=== PATIENT | female | born 1975 | race Caucasian/White ===

== ENCOUNTER 2019-01-28 22:28 | Emergency (ER) | payer OTHER ==
[2019-01-28 22:58] VITALS: TEMP 97.6; BMI 23.3
[2019-01-28] MEDS ORDERED: ACETAMINOPHEN 500 MG TABLET (FP) PO ONE (23:19)
[2019-01-28] MEDS ORDERED: FAMOTIDINE 10 MG TABLET PO ONE (23:19)
[2019-01-28] MEDS ORDERED: MAG HYDROX/AL HYDROX/SIMETH 30 ML UNIT-DOSE CUP PO ONE (23:25)
--- NOTE | 2019-01-28 23:25 | PDOC ---
History of Present Illness - General Chief Complaint: Pain, Acute Stated Complaint: ABDOMINAL PAIN Time Seen by Provider: 01/28/19 22:53 History Source: Patient Exam Limitations: No Limitations - History of Present Illness Initial Comments: 01/29/19 06:13 HPI: 43F no PMH c/o on/off epigastric pain radiating around to the back since 8pm today w/o N/V/PO intolerance. Sx lasted about 1 hour. Denies f/c, cp/sob. Passed flatus today. No sick contacts, no recent abx. 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 Currently asymptomatic. Denies etoh, smoking, drugs. Past History - Past Medical History Allergies/Adverse Reactions: Allergies Allergy/AdvReac Type Severity Reaction Status Date / Time No Known Allergies Allergy Verified 01/28/19 22:47 Home Medications: Ambulatory Orders NK [No Known Home Medication] 01/28/19 - Psycho Social/Smoking Cessation Hx Smoking History: Never smoked Have you smoked in the past 12 months: No Information on smoking cessation initiated: No Hx Alcohol Use: No Drug/Substance Use Hx: No Review of Systems - Review of Systems Able to Perform ROS?: Yes Comments:: 01/29/19 06:13 ROS: CONSTITUTIONAL: Denies F / C HEENT: Denies sore throat, rhinorrhea. RESP: Denies SOB, cough CARD: Denies chest pain GI: Endorses epigastric pain. Denies N / V / D, inability to tolerate PO : Denies dysuria, frequency SKIN: Denies rashes, edema NEURO: Denies numbness, tingling Is the patient limited Yemeni proficient: No *Physical Exam - Vital Signs Last Vital Signs Temp Pulse Resp BP Pulse Ox 97.6 F 80 20 134/81 100 01/28/19 22:48 01/28/19 22:48 01/28/19 22:48 01/28/19 22:48 01/28/19 22:48 - Physical Exam Comments: 01/29/19 06:13 PE: GEN: Well appearing, NAD, comfortable. AAOx3 HEENT: NC/AT. No facial asymmetry. Normal voice. Supple neck w/ FROM. CV: S1/S2, RRR, no m/r/g LUNG: CTAB, no wheezes, crackles, rales, rhonchi. GI: +MILD TTP midepigastrium otherwise soft, ndnt, +BS, no guarding, no rebound. No masses. EXTREMITIES: No obvious deformities of all extremities. SKIN: warm, dry, normal turgor PSYCH: normal mood and affect NEURO: Moving all extremities well, ambulates w/ normal gait ED Treatment Course - LABORATORY CBC & Chemistry Diagram: 01/29/19 03:36 01/29/19 03:36 Medical Decision Making - Medical Decision Making 01/28/19 23:22 MDM: 43F c/o on/off epigastric pain radiating around to the back w/o N/V/D; lasted about 1 hour. H/o gastric sleeve in 2018 w/o complication. Currently asymptomatic. DDx - PUD, pancreatitis, biliary/gallbladder pathology. Unlikely ACS or leak of sleeve. - CBC, CMP, Lipase - UA - EKG - Maloox - Reassess 01/29/19 00:18 labs reviewed, leukocytosis CT a/p 01/29/19 01:17 elevated LFTs denies heavy etoh, states she drinks socially every once and awhile Bedside RUQ US showing mobile gallstones - obtain RUQ US in addition to CT A/P Pt feeling better 01/29/19 02:59 US IMPRESSION: 1. Possible hepatic steatosis. 2. Cholelithiasis. 3. Medical renal disease suggested in the right kidney. f/u CT read rpt labs 01/29/19 03:31 CT A/P IMPRESSION: 1. Possible constipation. 2. Involuting cyst in the right ovary with small amount of free fluid in the right adnexa and rightward cul-de-sac. 3. Gallstones. asymptomatic rpt labs 01/29/19 03:59 WBC down DC home w/ bariatric and pcp f/u Discharge - Discharge Information Problems reviewed: Yes Clinical Impression/Diagnosis: Biliary colic Condition: Stable Disposition: HOME - Admission No - Follow up/Referral Referrals: Humberto Young MD [Staff Physician] - - Patient Discharge Instructions Patient Printed Discharge Instructions: DI for Biliary Colic Additional Instructions: You were provided a copy of your Ultrasound and CT scan results. They were reviewed with you at bedside and the elevated liver enzymes were recorded on the results provided. Follow up with your primary care doctor in the next 5-7 days regarding your elevated liver enzymes and the imaging findings. Follow up with a bariatric surgeon in the next 3-5 days regarding your symptoms. We have referred you to Dr. Humberto Young. You may schedule an appointment with him at the provided phone number. You may take maalox or pepcid as directed on the label for your symptoms. These can be bought over the counter. IMMEDIATELY return to the nearest Emergency Department if you experience any of the following: - worsening symptoms - inability to eat or drink - severe vomiting - High fever, jaundice, or change in mentation / behavior / personality - ANYTHING THAT CONCERNS YOU - Post Discharge Activity Work/Back to School Note: Back to Work
[2019-01-28] MEDS ORDERED: MAG HYDROX/AL HYDROX/SIMETH 30 ML UNIT-DOSE CUP ONE (23:42)
[2019-01-28] MEDS ORDERED: ACETAMINOPHEN 325 MG TABLET (FP) ONE (23:42)
[2019-01-28 23:44] LABS: EPI CELLS 11.2 /HPF (0-5/HPF); HYALINE CASTS 3 /lpf (0-8); PH,URINE 6.5 (5.0-8.0); URINE APPEARANCE CLEAR; URINE BILIRUBIN NEGATIVE (NEGATIVE); URINE COLOR YELLOW; URINE GLUCOSE (UA) NEGATIVE (NEGATIVE); URINE KETONE 1+ (NEGATIVE); URINE LEUK ESTERASE TRACE (NEGATIVE); URINE NITRITE NEGATIVE (NEGATIVE); URINE PROTEIN NEGATIVE (NEGATIVE); URINE RBC 2 /hpf (0-4); URINE WBC 9 /hpf (0-5)
[2019-01-29 00:04] LABS: BASO % 0.1 % (0-2.0); EOS % 0.1 % (0-4.5); HEMATOCRIT 38.3 % (32.4-45.2); HEMOGLOBIN 12.3 GM/dL (10.7-15.3); LYMPH % 5.6 % (8-40); MCH 26.4 pg (25.7-33.7); MCHC 32.1 g/dl (32.0-36.0); MEAN CELL VOLUME 82.3 fl (80-96); MEAN PLT VOLUME 9.9 fl (7.5-11.1); MONO % 6.7 % (3.8-10.2); NEUT % 87.5 % (42.8-82.8); PLATELET COUNT 301 K/MM3 (134-434); RBC 4.65 M/mm3 (3.60-5.2); RDW 14.2 % (11.6-15.6); WHITE BLOOD COUNT 17.7 K/mm3 (4.0-10.0)
--- NOTE | 2019-01-29 00:06 | PDOC ---
Documentation entered by Danay Atkins SCRIBE, acting as scribe for Devorah Melchor DO. Devorah Melchor DO: This documentation has been prepared by the Milly amador Adrianna, SCRIBE, under my direction and personally reviewed by me in its entirety. I confirm that the documentation accurately reflects all work, treatment, procedures, and medical decision making performed by me. Attending Attestation - Resident Resident Name: Lacho Carpio - ED Attending Attestation I have performed the following: I have examined & evaluated the patient, The case was reviewed & discussed with the resident, I agree w/resident's findings & plan, Exceptions are as noted - HPI HPI: The patient is a 43 year old female, with a significant PMH pf gastric sleeve, who presents to the ED for evaluation of epigastric pain for a few hours. Patient developed sudden onset epigastric pain that is intermittent and radiates to the back. Patient was supposed to be eating small meals since her gastric sleeve, and missed her meals so she was eating small snacks when her pain began. Denies any nausea or vomit, has been able to tolerate PO, and LBM was yesterday and normal. Allergies: NKA, NKDA Surgical History: Gastric sleeve Social History: Denies EtOH, tobacco, or illicit drug use - Physicial Exam PE: Constitutional: Awake, alert, oriented. No acute distress. Head: Normocephalic. Atraumatic Eyes: PERRL. EOMI. Conjunctivae are not pale. ENT: Mucous membranes are moist and intact. Posterior pharynx without exudates or erythema. Uvula midline. Neck: Supple. Full ROM. No lymphadenopathy. Cardiovascular: Regular rate. Regular rhythm. S1, S2 regular. Distal pulses are 2+ and symmetric. Pulmonary/Chest: No evidence of respiratory distress. Clear to auscultation bilaterally No wheezing, rales or rhonchi. Abdominal: +Mild epigastric tenderness to deep palpation of the epigastric area. Soft and nondistended. No rebound, guarding or rigidity. No organomegaly. No palpable masses. Good bowel sounds. Back: No CVA tenderness. Musculoskeletal: No edema. No cyanosis. No clubbing. Full range of motion in all extremities. Nocalf tenderness. Radial/pedal pulses are intact and 2+ bilaterally Skin: Skin is warm and dry. No petechiae. No purpura. Neurological: Alert and oriented to person, place, and time. Cranial nerves II -XII are grossly intact. Normal speech. Strength is grossly symmetric. No sensory deficits. Psychiatric: Good eye contact. Normal interaction, affect and behavior. - Medical Decision Making 01/29/19 00:02 I, Dr. Devorah Melchor, DO, attest that this document has been prepared under my direction and personally reviewed by me in its entirety. I further attest, that it accurately reflects all work, treatment, procedures and medical decision -making performed by me. 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 -states eating snacks tonight when the pain started - no radiation -no assoc n/v/d -last bm was yesterday and normal -pt states pain has since resolved -very mild ttp in epigastric region -pt in nad -will send labs and give maalox - does feel burning in abd and sour taste in mouth -will monitor and reassess 01/29/19 00:18 pt with wbc 17 - with a shift will obtain ct abd/pelvis 01/29/19 00:[address] pending 01/29/19 01:17 bedside ultrasound - gallstones that are mobile - no pericholecystic fluid, neg murphys, no gb wall thickening, no cbd dilatation 01/29/19 01:57 pt with elevated lft and wbc stones on ultrasound bedside pending ct and ultrasound reads and imaging pt signed out to the night team pending imaging and re-eval will repeat cbc Heart Score/ECG Review - ECG Intrepretation Comment:: 01/29/19 00:04 sinus at 74, nl axis, nl interval, no acute st/t wave findings
[2019-01-29 00:28] LABS: ALBUMIN 3.9 g/dl (3.4-5.0); BILIRUBIN,TOTAL 0.8 mg/dL (0.2-1); BLOOD UREA NITROGEN 10.8 mg/dL (7-18); CALCIUM 8.9 mg/dL (8.5-10.1); CREATININE 0.8 mg/dL (0.55-1.3); POTASSIUM 4.3 mmol/L (3.5-5.1); TOT PROT 7.3 g/dl (6.4-8.2)
[2019-01-29] MEDS ORDERED: LACTATED RINGERS SOLUTION 1000 ML INFUS.BAG IV ONE (01:58)
[2019-01-29 03:47] LABS: BASO % 0.3 % (0-2.0); EOS % 0.1 % (0-4.5); HEMATOCRIT 35.6 % (32.4-45.2); HEMOGLOBIN 11.5 GM/dL (10.7-15.3); LYMPH % 10.2 % (8-40); MCH 26.5 pg (25.7-33.7); MCHC 32.2 g/dl (32.0-36.0); MEAN CELL VOLUME 82.5 fl (80-96); MEAN PLT VOLUME 9.4 fl (7.5-11.1); MONO % 7.5 % (3.8-10.2); NEUT % 81.9 % (42.8-82.8); PLATELET COUNT 257 K/MM3 (134-434); RBC 4.32 M/mm3 (3.60-5.2); RDW 14.1 % (11.6-15.6); WHITE BLOOD COUNT 11.8 K/mm3 (4.0-10.0)
[2019-01-29 04:08] LABS: ALBUMIN 3.2 g/dl (3.4-5.0); BILIRUBIN,TOTAL 1.1 mg/dL (0.2-1); BLOOD UREA NITROGEN 7.9 mg/dL (7-18); CALCIUM 8.1 mg/dL (8.5-10.1); CREATININE 0.7 mg/dL (0.55-1.3); TOT PROT 6.4 g/dl (6.4-8.2)
[2019-01-29 04:21] VITALS: BP 128/64; PULSE 67
--- NOTE | 2019-01-29 12:05 | EKG ---
Test Reason : Blood Pressure : / mmHG Vent. Rate : 074 BPM Atrial Rate : 074 BPM P-R Int : 134 ms QRS Dur : 082 ms QT Int : 428 ms P-R-T Axes : 073 049 047 degrees QTc Int : 475 ms NORMAL SINUS RHYTHM WITH SINUS ARRHYTHMIA NORMAL ECG NO PREVIOUS ECGS AVAILABLE Confirmed by MARCIA MOROCHO MD ([id number]) on 01/29/2019 12:05:21 PM Referred By: Confirmed By:MARCIA MOROCHO MD
== END 2019-01-29 04:21 | disposition home or self-care (01) ==
LOC: JER 22:28
PROC: 3E0337Z Introduction of Electrolytic and Water Balance Substance into Peripheral Vein, Percutaneous Approach (ICD-10-PCS; principal; 2019-01-28)
DX: K80.50 Calculus of bile duct without cholangitis or cholecystitis without obstruction (principal); Z98.84 Bariatric surgery status
CPT/HCPCS: 36415; 74177-TC; 76705-TC; 80053; 81003; 83690; 84703; 85025; 93005; 93010; 99283-25

== ENCOUNTER 2021-10-10 11:26 | Day surgery (SDC) | payer OTHER ==
[2021-10-10 11:35] VITALS: BMI 23.7
[2021-10-10] MEDS ORDERED: SODIUM CHLORIDE 1,000 ML IV STA (11:53)
[2021-10-10] MEDS ORDERED: ACETAMINOPHEN 1000 MG/100 ML BAG IVPB ONE (11:53)
[2021-10-10] MEDS ORDERED: ONDANSETRON 4 MG/2 ML VIAL IVPUSH ONE (11:53)
[2021-10-10] MEDS ORDERED: PANTOPRAZOLE SODIUM 40 MG VIAL IVPB ONE (11:53)
[2021-10-10] MEDS ORDERED: DICYCLOMINE HCL 20 MG TABLET PO ONE (11:53)
[2021-10-10] MEDS ORDERED: DICYCLOMINE HCL 10 MG CAPSULE ONE (12:31)
[2021-10-10] MEDS ORDERED: ACETAMINOPHEN INJECTION 100 ML IVPB ONE (12:31)
[2021-10-10] MEDS ORDERED: PANTOPRAZOLE SODIUM 40 MG/100 ML BAG IVPB ONE (12:31)
[2021-10-10] MEDS ORDERED: ONDANSETRON 4 MG/2 ML VIAL ONE (12:32)
[2021-10-10 13:22] LABS: BASO % 0.7 % (0-2.0); EOS % 0.1 % (0-4.5); HEMATOCRIT 41.1 % (32.4-45.2); HEMOGLOBIN 13.6 GM/dL (10.7-15.3); LYMPH % 7.5 % (8-40); MCH 26.1 pg (25.7-33.7); MEAN PLT VOLUME 9.4 fl (7.5-11.1); MONO % 3.6 % (3.8-10.2); NEUT % 88.1 % (42.8-82.8); PLATELET COUNT 418 10^3/uL (134-434); RDW 14.5 % (11.6-15.6); WHITE BLOOD COUNT 11.2 K/mm3 (4.0-10.0)
[2021-10-10 14:17] LABS: ALBUMIN 4.3 g/dl (3.4-5.0); BLOOD UREA NITROGEN 8.9 mg/dL (7-18); CALCIUM 9.2 mg/dL (8.5-10.1); MAGNESIUM 2.1 mg/dL (1.8-2.4)
[2021-10-10 14:20] LABS: CREATININE 0.7 mg/dL (0.55-1.3); PHOSPHOROUS 3.3 mg/dL (2.5-4.9)
[2021-10-10 14:22] LABS: BILIRUBIN,TOTAL 0.6 mg/dL (0.2-1); TOT PROT 9.1 g/dl (6.4-8.2)
[2021-10-10] MEDS ORDERED: KETOROLAC TROMETHAMINE 30 MG/1 ML VIAL IVPUSH ONE (15:11)
[2021-10-10] MEDS ORDERED: KETOROLAC TROMETHAMINE 30 MG/1 ML VIAL ONE (15:46)
[2021-10-10 17:32] LABS: PH,URINE 7.5 (5.0-8.0); URINE APPEARANCE CLEAR; URINE BILIRUBIN NEGATIVE (NEGATIVE); URINE COLOR YELLOW; URINE GLUCOSE (UA) NEGATIVE (NEGATIVE); URINE KETONE 2+ (NEGATIVE); URINE LEUK ESTERASE NEGATIVE (NEGATIVE); URINE NITRITE NEGATIVE (NEGATIVE); URINE PROTEIN NEGATIVE (NEGATIVE); URINE UROBILINOGEN 0.2 mg/dL (0.2-1.0)
[2021-10-10] MEDS ORDERED: ACETAMINOPHEN 1000 MG/100 ML BAG IVPB PRN (18:10)
[2021-10-10] MEDS ORDERED: ONDANSETRON 4 MG/2 ML VIAL IVPUSH PRN (18:11)
[2021-10-10] MEDS ORDERED: SODIUM CHLORIDE 1,000 ML IV SCH (18:30)
[2021-10-10 18:42] LABS: INR 1.21 (0.83-1.09); PROTHROMBIN TIME (PATIENT) 13.9 SEC (9.7-13.0)
[2021-10-11] MEDS: FAMOTIDINE 20 MG/50 ML IVPB 20 MG/50 ML MG IVPB SCH ×3 (01:36→23:10)
[2021-10-11 10:47] LABS: HEMATOCRIT 36.1 % (32.4-45.2); HEMOGLOBIN 11.9 GM/dL (10.7-15.3); MCH 26.3 pg (25.7-33.7); MCHC 32.9 g/dl (32.0-36.0); MEAN CELL VOLUME 79.8 fl (80-96); MEAN PLT VOLUME 9.9 fl (7.5-11.1); PLATELET COUNT 356 10^3/uL (134-434); RBC 4.52 M/mm3 (3.60-5.2); RDW 14.5 % (11.6-15.6); WHITE BLOOD COUNT 11.1 K/mm3 (4.0-10.0)
[2021-10-11] MEDS ORDERED: BUPIVACAINE HCL/PF 0.25% (2.5MG/ML) 10 ML VIAL ONE ×2 (10:49→11:44)
[2021-10-11 11:35] LABS: CALCIUM 8.1 mg/dL (8.5-10.1)
[2021-10-11 11:36] LABS: BLOOD UREA NITROGEN 6.3 mg/dL (7-18)
[2021-10-11 11:39] LABS: CREATININE 0.7 mg/dL (0.55-1.3)
[2021-10-11 11:41] LABS: BILIRUBIN,TOTAL 0.9 mg/dL (0.2-1)
[2021-10-11] MEDS ORDERED: IBUPROFEN 800 MG/8 ML IJ IVPB PRN (11:53)
[2021-10-11 11:54] LABS: TOT PROT 6.7 g/dl (6.4-8.2)
[2021-10-11] MEDS ORDERED: LIDOCAINE HCL/PF 2% SDV 5ML VIAL ONE (12:01)
[2021-10-11] MEDS ORDERED: MIDAZOLAM HCL 2 MG/2 ML SINGLE DOSE VIAL ONE (12:02)
[2021-10-11] MEDS ORDERED: PROPOFOL 20 ML ONE (12:02)
[2021-10-11] MEDS ORDERED: ROCURONIUM BROMIDE 50 MG/5 ML SYRINGE ONE (12:02)
[2021-10-11] MEDS ORDERED: DEXAMETHASONE SOD PHOSPHATE 4 MG/1 ML VIAL ONE (13:28)
[2021-10-11] MEDS ORDERED: CEFOXITIN SODIUM 1 GM IVPB ONE (13:37)
[2021-10-11] MEDS ORDERED: cefOXitin SODIUM 1 GM VIAL (RESTRICTED TO ID) IVPB ONE (13:38)
[2021-10-11] MEDS ORDERED: BUPIVACAINE HCL/PF 0.25% (2.5MG/ML) 10 ML VIAL IJ ONE ×2 (13:40)
[2021-10-11] MEDS ORDERED: GLYCOPYRROLATE 0.2 MG/1 ML VIAL ONE (14:16)
[2021-10-11] MEDS ORDERED: NEOSTIGMINE METHYLSULFATE 0.5 MG/ML - 10 ML MDV ONE (14:17)
[2021-10-11] MEDS ORDERED: TRIAMCINOLONE ACET 40MG/1ML VIAL IJ ONE (14:56)
[2021-10-11] MEDS ORDERED: TRIAMCINOLONE ACETONIDE 40 MG/ML 10 ML VIAL NR ONE (15:00)
[2021-10-11] MEDS ORDERED: FENTANYL CITRATE/PF 50 MCG/ML VIAL ONE ×4 (15:18→16:09)
[2021-10-11] MEDS ORDERED: ONDANSETRON 4 MG/2 ML VIAL IVPUSH PRN (15:29)
[2021-10-11] MEDS ORDERED: SODIUM CHLORIDE 1,000 ML IV SCH (15:29)
[2021-10-11] MEDS ORDERED: oxyCODONE HCL 5 MG TABLET PO PRN ×2 (15:29)
[2021-10-11] MEDS ORDERED: ACETAMINOPHEN 1000 MG/100 ML BAG IVPB PRN (15:29)
[2021-10-11] MEDS: IBUPROFEN 800 MG/8 ML IJ IVPB PRN (23:45)
[2021-10-12] MEDS ORDERED: ACETAMINOPHEN 1000 MG/100 ML BAG IVPB ONE (08:45)
[2021-10-12] MEDS: IBUPROFEN 800 MG/8 ML IJ IVPB PRN (08:58)
[2021-10-12] MEDS ORDERED: ACETAMINOPHEN 500 MG TABLET (FP) PO PRN (10:32)
[2021-10-12 10:40] VITALS: BP 148/69; PULSE 72; TEMP 98.2
[2021-10-12] MEDS: FAMOTIDINE 20 MG/50 ML IVPB 20 MG/50 ML MG IVPB SCH (11:00)
== END 2021-10-12 12:54 | disposition home or self-care (01) ==
LOC: JER 11:26 → JERFT 11:26 → JERBED 17:34 → JASUSAT 17:34 → SUATTDRO 17:34 → UNDOADMIN 17:34 → J6S 23:50 → JASUSAT 10-12 12:54
PROVIDERS: ATTEND Nurse Practitioner Family
PROC: 0FT44ZZ Resection of Gallbladder, Percutaneous Endoscopic Approach (ICD-10-PCS; principal; 2021-10-10)
DX: K81.0 Acute cholecystitis (principal); K82.1 Hydrops of gallbladder
CPT/HCPCS: 0241U-QW; 36415; 74177-TC; 76705-TC; 80053; 81003; 83690; 83735; 84100; 84703; 85025; 85027; 85610; 86850; 86900; 86901; 87086; 88304-TC; 93005; 93010; 94010; 94760; 99285-25; Q9967

== ENCOUNTER 2021-12-14 12:17 | Inpatient (IN) | payer OTHER, BC ==
[2021-12-14] MEDS ORDERED: FAMOTIDINE 20 MG/50 ML IVPB 20 MG/50 ML MG IVPB ONE ×2 (12:46→13:17)
[2021-12-14] MEDS ORDERED: PANTOPRAZOLE SODIUM 40 MG VIAL IVPUSH ONE (12:46)
[2021-12-14] MEDS ORDERED: SODIUM CHLORIDE 0.9% 500 ML INFUS.BAG IV ONE (12:46)
[2021-12-14] MEDS ORDERED: ONDANSETRON 4 MG/2 ML VIAL IVPUSH ONE (12:46)
[2021-12-14] MEDS ORDERED: ONDANSETRON 4 MG/2 ML VIAL ONE (13:16)
[2021-12-14] MEDS ORDERED: PANTOPRAZOLE SODIUM 40 MG/100 ML BAG IVPB ONE (13:16)
[2021-12-14 13:40] LABS: BASO % 0.2 % (0-2.0); EOS % 0.7 % (0-4.5); HEMATOCRIT 39.8 % (32.4-45.2); HEMOGLOBIN 12.9 GM/dL (10.7-15.3); LYMPH % 6.2 % (8-40); MCH 25.9 pg (25.7-33.7); MCHC 32.5 g/dl (32.0-36.0); MEAN CELL VOLUME 79.8 fl (80-96); MEAN PLT VOLUME 9.6 fl (7.5-11.1); MONO % 8.5 % (3.8-10.2); NEUT % 84.4 % (42.8-82.8); PLATELET COUNT 339 10^3/uL (134-434); RBC 4.99 M/mm3 (3.60-5.2); RDW 14.6 % (11.6-15.6)
[2021-12-14 13:46] LABS: INR 1.15 (0.83-1.09); PROTHROMBIN TIME (PATIENT) 13.3 SEC (9.7-13.0)
[2021-12-14 13:49] LABS: BLOOD UREA NITROGEN 8.5 mg/dL (7-18); CALCIUM 8.9 mg/dL (8.5-10.1)
[2021-12-14 13:50] LABS: ALBUMIN 3.6 g/dl (3.4-5.0)
[2021-12-14 13:52] LABS: CREATININE 0.7 mg/dL (0.55-1.3)
[2021-12-14 13:54] LABS: BILIRUBIN,TOTAL 1.7 mg/dL (0.2-1); TOT PROT 8.4 g/dl (6.4-8.2)
[2021-12-14] MEDS ORDERED: ACETAMINOPHEN 1000 MG/100 ML BAG IVPB ONE (15:15)
[2021-12-14] MEDS ORDERED: ONDANSETRON 4 MG/2 ML VIAL IVPUSH PRN (15:54)
[2021-12-14] MEDS ORDERED: ACETAMINOPHEN INJECTION 100 ML IVPB ONE (16:27)
[2021-12-14] MEDS: LACTATED RINGERS SOLUTION 1,000 ML/1,000 ML INFUS.BAG IV SCH (17:10)
[2021-12-14] MEDS ORDERED: PIPERACILLIN/TAZOB 3.375 GM 3.375 GM/50 ML BAG IVPB ONE (17:13)
[2021-12-14] MEDS: PIPERACILLIN/TAZOB 3.375 GM 3.375 GM in DEXTROSE 5%-WATER - 50 ML IVPB SCH ×2 (17:20→21:14)
[2021-12-14 19:28] LABS: BASO % 0.3 % (0-2.0); HEMATOCRIT 35.6 % (32.4-45.2); HEMOGLOBIN 11.9 GM/dL (10.7-15.3); LYMPH % 8.9 % (8-40); MCH 26.4 pg (25.7-33.7); MCHC 33.3 g/dl (32.0-36.0); MEAN CELL VOLUME 79.3 fl (80-96); MEAN PLT VOLUME 9.6 fl (7.5-11.1); MONO % 10.9 % (3.8-10.2); NEUT % 78.9 % (42.8-82.8); PLATELET COUNT 280 10^3/uL (134-434); RDW 14.6 % (11.6-15.6); WHITE BLOOD COUNT 10.4 K/mm3 (4.0-10.0)
[2021-12-14 19:49] LABS: INR 1.21 (0.83-1.09)
[2021-12-14 19:52] LABS: ACTIVATED PTT 33.3 SECONDS (25.2-36.5)
[2021-12-14 20:01] LABS: CALCIUM 8.1 mg/dL (8.5-10.1)
[2021-12-14 20:02] LABS: ALBUMIN 3.2 g/dl (3.4-5.0); BLOOD UREA NITROGEN 6.9 mg/dL (7-18)
[2021-12-14 20:03] LABS: EPI CELLS 14 /uL (0-25.1); HYALINE CASTS 1 /uL (0-3.1); URINE APPEARANCE CLEAR; URINE BACTERIA 28 /uL (0-1359); URINE BILIRUBIN 1+ (NEGATIVE); URINE COLOR DK YELLOW; URINE GLUCOSE (UA) NEGATIVE (NEGATIVE); URINE KETONE 1+ (NEGATIVE); URINE LEUK ESTERASE NEGATIVE (NEGATIVE); URINE NITRITE NEGATIVE (NEGATIVE); URINE PROTEIN 1+ (NEGATIVE); URINE RBC 13 /uL (0-23.9); URINE WBC 28 /uL (0-25.8)
[2021-12-14 20:05] LABS: CREATININE 0.6 mg/dL (0.55-1.3)
[2021-12-14 20:06] LABS: TOT PROT 7.1 g/dl (6.4-8.2)
[2021-12-14 20:09] LABS: BILIRUBIN,TOTAL 2.1 mg/dL (0.2-1)
[2021-12-15 00:01] VITALS: BMI 24.4
[2021-12-15] MEDS: PIPERACILLIN/TAZOB 3.375 GM 3.375 GM in DEXTROSE 5%-WATER - 50 ML IVPB SCH ×2 (01:09→17:21)
[2021-12-15] MEDS: LACTATED RINGERS SOLUTION 1,000 ML/1,000 ML INFUS.BAG IV SCH ×2 (03:56→22:11)
[2021-12-15] MEDS ORDERED: PHYTONADIONE 10 MG/1 ML AMP IVPB ONE (08:24)
[2021-12-15 11:12] LABS: BASO % 0.6 % (0-2.0); EOS % 2.5 % (0-4.5); HEMATOCRIT 34.1 % (32.4-45.2); HEMOGLOBIN 11.6 GM/dL (10.7-15.3); LYMPH % 12.3 % (8-40); MCH 27.1 pg (25.7-33.7); MCHC 34.2 g/dl (32.0-36.0); MEAN CELL VOLUME 79.4 fl (80-96); MEAN PLT VOLUME 9.6 fl (7.5-11.1); MONO % 9.2 % (3.8-10.2); NEUT % 75.4 % (42.8-82.8); PLATELET COUNT 283 10^3/uL (134-434); RBC 4.29 M/mm3 (3.60-5.2); WHITE BLOOD COUNT 8.5 K/mm3 (4.0-10.0)
[2021-12-15 11:19] LABS: INR 1.4 (0.83-1.09); PROTHROMBIN TIME (PATIENT) 16.1 SEC (9.7-13.0)
[2021-12-15 11:35] LABS: BLOOD UREA NITROGEN 6.8 mg/dL (7-18); CALCIUM 8.5 mg/dL (8.5-10.1)
[2021-12-15 11:38] LABS: CREATININE 0.7 mg/dL (0.55-1.3)
[2021-12-15 11:40] LABS: BILIRUBIN,TOTAL 4.8 mg/dL (0.2-1); TOT PROT 6.6 g/dl (6.4-8.2)
[2021-12-15] MEDS ORDERED: KETAMINE HCL 200 MG/20 ML VIAL ONE (12:12)
[2021-12-15] MEDS ORDERED: SUCCINYLCHOLINE CHLORIDE 200 MG/10 ML SYRINGE ONE (12:13)
[2021-12-15] MEDS: INDOMETHACIN 50 MG RECTAL SUPPOSITORY PR SCH (14:10)
[2021-12-15] MEDS ORDERED: FENTANYL CITRATE/PF 50 MCG/ML VIAL ONE ×2 (14:12→14:13)
[2021-12-15] MEDS ORDERED: IOHEXOL 300 MG/ML INFUS..BTL IV ONE (14:30)
[2021-12-15] MEDS ORDERED: LACTATED RINGERS SOLUTION 1,000 ML/1,000 ML INFUS.BAG IV SCH ×2 (15:15→15:30)
[2021-12-15] MEDS ORDERED: traMADol HCL 50 MG TABLET PO PRN (17:35)
[2021-12-16] MEDS: PIPERACILLIN/TAZOB 3.375 GM 3.375 GM in DEXTROSE 5%-WATER - 50 ML IVPB SCH ×3 (00:49→15:29)
[2021-12-16] MEDS: LACTATED RINGERS SOLUTION 1,000 ML/1,000 ML INFUS.BAG IV SCH ×3 (02:14→20:37)
[2021-12-16 03:34] VITALS: RESP 18
[2021-12-16] MEDS ORDERED: LACTATED RINGERS SOLUTION 1,000 ML/1,000 ML INFUS.BAG IV SCH (09:00)
[2021-12-16] MEDS: INDOMETHACIN 50 MG RECTAL SUPPOSITORY PR SCH (10:02)
[2021-12-16 12:52] LABS: INR 1.29 (0.83-1.09); PROTHROMBIN TIME (PATIENT) 14.9 SEC (9.7-13.0)
[2021-12-16 12:58] LABS: BASO % 0.5 % (0-2.0); EOS % 1.5 % (0-4.5); HEMATOCRIT 35.1 % (32.4-45.2); HEMOGLOBIN 11.3 GM/dL (10.7-15.3); LYMPH % 14.9 % (8-40); MCH 25.8 pg (25.7-33.7); MCHC 32.3 g/dl (32.0-36.0); MEAN CELL VOLUME 79.9 fl (80-96); MEAN PLT VOLUME 10.5 fl (7.5-11.1); MONO % 7.3 % (3.8-10.2); NEUT % 75.8 % (42.8-82.8); PLATELET COUNT 276 10^3/uL (134-434); RBC 4.39 M/mm3 (3.60-5.2); RDW 14.8 % (11.6-15.6); WHITE BLOOD COUNT 8.6 K/mm3 (4.0-10.0)
[2021-12-16 13:04] LABS: CALCIUM 8.3 mg/dL (8.5-10.1)
[2021-12-16 13:05] LABS: BLOOD UREA NITROGEN 5.3 mg/dL (7-18)
[2021-12-16 13:08] LABS: BILIRUBIN,DIRECT 0.6 mg/dL (0.0-0.2); CREATININE 0.6 mg/dL (0.55-1.3)
[2021-12-16 13:09] LABS: BILIRUBIN,TOTAL 1.6 mg/dL (0.2-1); TOT PROT 6.6 g/dl (6.4-8.2)
[2021-12-16 13:24] LABS: PLATELET ESTIMATE ADEQUATE
[2021-12-16] MEDS ORDERED: traMADol HCL 50 MG TABLET PO PRN (20:38)
[2021-12-16] MEDS ORDERED: MAG HYDROX/AL HYDROX/SIMETH 30 ML UNIT-DOSE CUP PO ONE (23:42)
[2021-12-17] MEDS: PIPERACILLIN/TAZOB 3.375 GM 3.375 GM in DEXTROSE 5%-WATER - 50 ML IVPB SCH ×4 (06:50→22:52)
[2021-12-17] MEDS: INDOMETHACIN 50 MG RECTAL SUPPOSITORY PR SCH (10:02)
[2021-12-17 10:30] LABS: ALBUMIN 2.9 g/dl (3.4-5.0); CALCIUM 8.3 mg/dL (8.5-10.1)
[2021-12-17 10:33] LABS: BASO % 0.6 % (0-2.0); BILIRUBIN,DIRECT 0.4 mg/dL (0.0-0.2); CREATININE 0.7 mg/dL (0.55-1.3); EOS % 2.3 % (0-4.5); HEMATOCRIT 32.7 % (32.4-45.2); HEMOGLOBIN 11.1 GM/dL (10.7-15.3); LYMPH % 24.4 % (8-40); MCH 26.9 pg (25.7-33.7); MCHC 33.9 g/dl (32.0-36.0); MEAN CELL VOLUME 79.4 fl (80-96); MEAN PLT VOLUME 9.6 fl (7.5-11.1); NEUT % 62.7 % (42.8-82.8); PLATELET COUNT 264 10^3/uL (134-434); RBC 4.11 M/mm3 (3.60-5.2); RDW 14.5 % (11.6-15.6); WHITE BLOOD COUNT 7.2 K/mm3 (4.0-10.0)
[2021-12-17 10:34] LABS: BILIRUBIN,TOTAL 1.1 mg/dL (0.2-1)
[2021-12-17 10:36] LABS: TOT PROT 6.4 g/dl (6.4-8.2)
[2021-12-17] MEDS ORDERED: KETOROLAC TROMETHAMINE 10 MG TABLET PO PRN (13:44)
[2021-12-17] MEDS: LACTATED RINGERS SOLUTION 1,000 ML/1,000 ML INFUS.BAG IV SCH (22:52)
[2021-12-18 07:44] VITALS: BP 125/64; PULSE 60; TEMP 97.9
[2021-12-18] MEDS: PIPERACILLIN/TAZOB 3.375 GM 3.375 GM in DEXTROSE 5%-WATER - 50 ML IVPB SCH (08:44)
[2021-12-18 12:42] LABS: BASO % 0.7 % (0-2.0); EOS % 1.8 % (0-4.5); HEMATOCRIT 32.4 % (32.4-45.2); HEMOGLOBIN 10.5 GM/dL (10.7-15.3); LYMPH % 22.6 % (8-40); MCH 25.7 pg (25.7-33.7); MCHC 32.5 g/dl (32.0-36.0); MEAN CELL VOLUME 78.9 fl (80-96); MEAN PLT VOLUME 9.8 fl (7.5-11.1); NEUT % 66.9 % (42.8-82.8); PLATELET COUNT 291 10^3/uL (134-434); RBC 4.11 M/mm3 (3.60-5.2); RDW 14.5 % (11.6-15.6); WHITE BLOOD COUNT 6.6 K/mm3 (4.0-10.0)
[2021-12-18 13:00] LABS: CHLORIDE 106 mmol/L (98-107); SODIUM 141 mmol/L (136-145)
[2021-12-18 13:10] LABS: ALBUMIN 2.8 g/dl (3.4-5.0); BLOOD UREA NITROGEN 4.7 mg/dL (7-18); CALCIUM 8.5 mg/dL (8.5-10.1); CREATININE 0.6 mg/dL (0.55-1.3); SGPT/ALT 146 U/L (13-61)
[2021-12-18 13:11] LABS: ANION GAP 7 MMOL/L (8-16); CO2 27 mmol/L (21-32); GLUCOSE,RANDOM 141 mg/dL (74-106)
[2021-12-18 13:12] LABS: BILIRUBIN,TOTAL 0.7 mg/dL (0.2-1); LIPASE 990 U/L (73-393); TOT PROT 6.5 g/dl (6.4-8.2)
[2021-12-18 13:14] LABS: ALK PHOS 126 U/L (45-117); BILIRUBIN,DIRECT 0.3 mg/dL (0.0-0.2); SGOT/AST 74 U/L (15-37)
== END 2021-12-18 16:15 | disposition home or self-care (01) | DRG 444 ==
LOC: JER 12:17 → JERBED 14:49 → J5S 19:09
PROVIDERS: ADMIT Internal Medicine; ATTEND Nurse Practitioner Family
PROC: BF13YZZ Fluoroscopy of Gallbladder and Bile Ducts using Other Contrast (ICD-10-PCS; 2021-12-15)
PROC: 0FC98ZZ Extirpation of Matter from Common Bile Duct, Via Natural or Artificial Opening Endoscopic (ICD-10-PCS; principal; 2021-12-15 13:30)
DX: K80.50 Calculus of bile duct without cholangitis or cholecystitis without obstruction (principal); K85.80 Other acute pancreatitis without necrosis or infection; K91.89 Other postprocedural complications and disorders of digestive system; D72.829 Elevated white blood cell count, unspecified; Y83.9 Surgical procedure, unspecified as the cause of abnormal reaction of the patient, or of later complication, without mention of misadventure at the time of the procedure
CPT/HCPCS: 0241U-QW; 36415; 74181-TC; 76000-TC-FY; 76705-TC; 80048; 80053; 80076; 81003; 82150; 83690; 84703; 85025; 85610; 85730; 86140; 86850; 86900; 86901; 87086; 93005; 93010; 99285-25